=== PATIENT | male | born 1955 | race Caucasian/White ===

== ENCOUNTER 2017-05-10 13:10 | Inpatient (IN) | payer SELFPAY ==
[~2017-05-10] VITALS: Ht 172.7 cm; Wt 81.2 kg
[2017-05-10 14:47] LABS: HEMATOCRIT 43.1 % (38.0-50.0); MCH 30.8 PG (29.0-34.0); MCHC 33.4 G/DL (30.0-36.0); MCV 92.3 FL (86-99); MEAN PLAT.VOLUME 9.6 uM^3 (9.0-12.4); PLATELET COUNT 219 K/uL (156-360); RBC DIS.WIDTH-CV 14.2 % (11.8-14.6); RED BLOOD COUNT 4.67 M/uL (4.00-5.50); WHITE BLOOD COUNT 8.7 K/uL (4.1-10.2)
[2017-05-10 14:58] LABS: CHLORIDE 107 mEq/L (99-109); SODIUM 141 mEq/L (136-147)
[2017-05-10 15:00] LABS: GLUCOSE 127 mg/dL (70-99)
[2017-05-10 15:01] LABS: ANION GAP 10 MEQ/L (2-14)
[2017-05-10 15:03] LABS: SERUM ETHYL ALCOHOL 159 mg/dL
[2017-05-10 15:04] LABS: GFR ESTIMATE (CALCULATED) > 59 mL/min/
[2017-05-10 15:05] LABS: UREA NITROGEN (BUN) 16 mg/dL (9-23)
[2017-05-10 15:06] LABS: TROP-I INTERPRETATION NEGATIVE; TROPONIN-I < 0.01 ng/mL (0.0-0.30)
[2017-05-10 16:20] LABS: AMPHETAMINE NEGATIVE (500 ng/mL); BARBITURATES NEGATIVE (200 ng/mL); BENZODIAZEPINES PRESUMPTIVE POSITIVE (150 ng/mL); COCAINE NEGATIVE (150 ng/mL); INTERNAL CONTROLS VALID? YES; METHADONE NEGATIVE (200 ng/mL); METHAMPHETAMINE NEGATIVE (500 ng/mL); OPIATES (MORPHINE) NEGATIVE (100 ng/mL); OXYCODONE NEGATIVE (100 ng/mL); PHENCYCLIDINE NEGATIVE (25 ng/mL); PROPOXYPHENE NEGATIVE (300 ng/mL); THC CANNABINOIDS NEGATIVE (50 ng/mL); TRICYCLIC ANTIDEPRESSANTS NEGATIVE (300 ng/mL)
[2017-05-10 16:21] LABS: ADD MEDTOX COMMENT Y
[2017-05-10 16:47] LABS: BENZODIAZEPINES QUANT VALUE 0 NG/ML; BENZODIAZEPINES, URINE SCREEN Negative (200 ng/mL)
[2017-05-10 18:06] LABS: TROP-I INTERPRETATION NEGATIVE; TROPONIN-I < 0.01 ng/mL (0.0-0.30)
[2017-05-10] MEDS ORDERED: ALBUTEROL (21:30)
[2017-05-10] MEDS ORDERED: TYLENOL EXTRA500 MG PO (21:31)
[2017-05-11 02:04] VITALS: BP 118/70
[2017-05-11 07:46] VITALS: BP 116/68
[2017-05-11 15:15] VITALS: BP 126/64
[2017-05-12 08:12] VITALS: BP 116/63
== END 2017-05-12 14:52 | disposition left against medical advice (07) | DRG 894 ==
LOC: EME 13:10 → EDOF 19:49 → 1WEST 19:49 → ENRESERV 05-11 01:40 → 1WEST 05-11 01:41
PROVIDERS: Emergency Medicine
PROC: HZ2ZZZZ Detoxification Services for Substance Abuse Treatment (ICD-10-PCS; principal; 2017-05-10)
DX: F10.24 Alcohol dependence with alcohol-induced mood disorder (principal); R45.851 Suicidal ideations; Y90.6 Blood alcohol level of 120-199 mg/100 ml; F32.9 Major depressive disorder, single episode, unspecified; Z91.14 Patient's other noncompliance with medication regimen; Z91.5 Personal history of self-harm; R07.89 Other chest pain; Z59.0 Homelessness; G47.00 Insomnia, unspecified; J44.9 Chronic obstructive pulmonary disease, unspecified; F17.200 Nicotine dependence, unspecified, uncomplicated; Z81.8 Family history of other mental and behavioral disorders
CPT/HCPCS: 71010; 80048; 84484; 84999; 85027; 90839; 93005; 94640; 97166 GO; 99202; 99281; 99284; G0480; J7644; Q0177

== ENCOUNTER 2017-05-13 02:29 | Emergency (ER) | payer SELFPAY ==
[~2017-05-13] VITALS: Ht 180.3 cm; Wt 80.7 kg
[~2017-05-13 02:29] MED LIST: ALBUTEROL; TYLENOL EXTRA500 MG PO
[2017-05-13 03:11] LABS: BASOPHIL COUNT 0.1 K/uL (0-0.1); EOSINOPHIL (%) 1.7 % (0-5); EOSINOPHIL COUNT 0.2 K/uL (0-0.3); HEMATOCRIT 42.7 % (38.0-50.0); IMMATURE GRANULOCYTE (%) 0.5 % (0.0-0.7); IMMATURE GRANULOCYTE COUNT 0.1 K/uL; LYMPHOCYTE COUNT 2.1 K/uL (1.0-2.8); MCH 31.1 PG (29.0-34.0); MCV 94.1 FL (86-99); MEAN PLAT.VOLUME 9.5 uM^3 (9.0-12.4); MONOCYTE (%) 4.9 % (3-12); MONOCYTE COUNT 0.7 K/uL (0-0.8); NEUTROPHIL (%) 76.1 % (45-76); PLATELET COUNT 225 K/uL (156-360); RBC DIS.WIDTH-CV 14.2 % (11.8-14.6); RBC DIS.WIDTH-SD 49.2 % (39-53); RED BLOOD COUNT 4.54 M/uL (4.00-5.50); WHITE BLOOD COUNT 13.1 K/uL (4.1-10.2)
[2017-05-13 03:20] LABS: CHLORIDE 112 mEq/L (99-109); POTASSIUM 4.5 mEq/L (3.7-5.4); SODIUM 147 mEq/L (136-147)
[2017-05-13 03:22] LABS: GLUCOSE 111 mg/dL (70-99)
[2017-05-13 03:23] LABS: ANION GAP 9 MEQ/L (2-14)
[2017-05-13 03:25] LABS: SERUM ETHYL ALCOHOL 262 mg/dL
[2017-05-13 03:26] LABS: GFR ESTIMATE (CALCULATED) > 59 mL/min/
[2017-05-13 03:28] LABS: UREA NITROGEN (BUN) 14 mg/dL (9-23)
[2017-05-13 03:29] LABS: SALICYLATE < 5.0 MG/DL (15-30)
[2017-05-13 10:27] LABS: AMPHETAMINE NEGATIVE (500 ng/mL); BARBITURATES NEGATIVE (200 ng/mL); BENZODIAZEPINES PRESUMPTIVE POSITIVE (150 ng/mL); COCAINE NEGATIVE (150 ng/mL); METHADONE NEGATIVE (200 ng/mL); METHAMPHETAMINE NEGATIVE (500 ng/mL); OPIATES (MORPHINE) NEGATIVE (100 ng/mL); OXYCODONE NEGATIVE (100 ng/mL); PHENCYCLIDINE NEGATIVE (25 ng/mL); PROPOXYPHENE NEGATIVE (300 ng/mL); THC CANNABINOIDS NEGATIVE (50 ng/mL); TRICYCLIC ANTIDEPRESSANTS NEGATIVE (300 ng/mL)
[2017-05-13 10:28] LABS: ADD MEDTOX COMMENT Y; INTERNAL CONTROLS VALID? YES
[2017-05-13 11:10] LABS: BENZODIAZEPINES, URINE SCREEN POSITIVE (200 ng/mL)
[2017-05-13 12:23] VITALS: BP 115/73
== END 2017-05-13 12:23 | disposition home or self-care (01) ==
LOC: EME 02:29
PROVIDERS: Emergency Medicine
DX: F10.24 Alcohol dependence with alcohol-induced mood disorder (principal); F31.30 Bipolar disorder, current episode depressed, mild or moderate severity, unspecified; R45.851 Suicidal ideations; Z91.14 Patient's other noncompliance with medication regimen; F69 Unspecified disorder of adult personality and behavior; F17.200 Nicotine dependence, unspecified, uncomplicated
CPT/HCPCS: 80048; 84999; 85025; 90839; 99281; 99283; G0480

== ENCOUNTER 2017-05-13 18:36 | Emergency (ER) | payer SELFPAY ==
[~2017-05-13] VITALS: Ht 177.8 cm; Wt 83.5 kg
[2017-05-13 19:51] LABS: POINT-OF-CARE METER ID UU13113747
[2017-05-14 01:48] VITALS: BP 128/81
== END 2017-05-14 01:48 | disposition home or self-care (01) ==
LOC: EME 18:36
PROVIDERS: Emergency Medicine
DX: F10.129 Alcohol abuse with intoxication, unspecified (principal); F17.200 Nicotine dependence, unspecified, uncomplicated
CPT/HCPCS: 82948; 99281; 99285

== ENCOUNTER 2017-05-15 20:24 | Emergency (ER) | payer SELFPAY ==
[~2017-05-15] VITALS: Ht 172.7 cm; Wt 85.8 kg
[2017-05-16 05:19] VITALS: BP 116/68
== END 2017-05-16 05:24 | disposition home or self-care (01) ==
LOC: EME 20:24
DX: F10.129 Alcohol abuse with intoxication, unspecified (principal); Z91.14 Patient's other noncompliance with medication regimen; F17.200 Nicotine dependence, unspecified, uncomplicated
CPT/HCPCS: 99281; 99285

== ENCOUNTER 2017-05-16 23:05 | Emergency (ER) | payer SELFPAY ==
[~2017-05-16] VITALS: Ht 180.3 cm; Wt 81.8 kg
[2017-05-16 23:52] LABS: HEMATOCRIT 40.2 % (38.0-50.0); MCH 31.1 PG (29.0-34.0); MCHC 33.8 G/DL (30.0-36.0); MCV 91.8 FL (86-99); MEAN PLAT.VOLUME 9.2 uM^3 (9.0-12.4); PLATELET COUNT 251 K/uL (156-360); RBC DIS.WIDTH-CV 14.5 % (11.8-14.6); RED BLOOD COUNT 4.38 M/uL (4.00-5.50); WHITE BLOOD COUNT 8.2 K/uL (4.1-10.2)
[2017-05-17 00:01] LABS: CHLORIDE 112 mEq/L (99-109); SODIUM 149 mEq/L (136-147)
[2017-05-17 00:02] LABS: POTASSIUM 3.5 mEq/L (3.7-5.4)
[2017-05-17 00:03] LABS: GLUCOSE 107 mg/dL (70-99)
[2017-05-17 00:04] LABS: ANION GAP 13 MEQ/L (2-14)
[2017-05-17 00:06] LABS: SERUM ETHYL ALCOHOL 403 mg/dL
[2017-05-17 00:07] LABS: GFR ESTIMATE (CALCULATED) > 59 mL/min/
[2017-05-17 00:08] LABS: UREA NITROGEN (BUN) 18 mg/dL (9-23)
[2017-05-17 00:10] LABS: COCAINE NEGATIVE (150 ng/mL); METHAMPHETAMINE NEGATIVE (500 ng/mL); PHENCYCLIDINE NEGATIVE (25 ng/mL); THC CANNABINOIDS NEGATIVE (50 ng/mL)
[2017-05-17 00:11] LABS: ADD MEDTOX COMMENT Y; AMPHETAMINE NEGATIVE (500 ng/mL); BARBITURATES NEGATIVE (200 ng/mL); BENZODIAZEPINES PRESUMPTIVE POSITIVE (150 ng/mL); INTERNAL CONTROLS VALID? YES; METHADONE NEGATIVE (200 ng/mL); OPIATES (MORPHINE) NEGATIVE (100 ng/mL); OXYCODONE NEGATIVE (100 ng/mL); PROPOXYPHENE NEGATIVE (300 ng/mL); TRICYCLIC ANTIDEPRESSANTS NEGATIVE (300 ng/mL)
[2017-05-17 02:48] LABS: BENZODIAZEPINES, URINE SCREEN POSITIVE (200 ng/mL)
[2017-05-17 04:37] VITALS: BP 112/77
== END 2017-05-17 04:41 | disposition home or self-care (01) ==
LOC: EME → EDBD 23:05 → EME 05-17 04:41
PROVIDERS: Emergency Medicine
DX: F10.129 Alcohol abuse with intoxication, unspecified (principal); Y90.8 Blood alcohol level of 240 mg/100 ml or more; F17.200 Nicotine dependence, unspecified, uncomplicated
CPT/HCPCS: 80048; 84999; 85027; 99281; 99284; G0480

== ENCOUNTER 2017-05-19 18:55 | Emergency (ER) | payer SELFPAY ==
[~2017-05-19] VITALS: Ht 180.3 cm; Wt 98.1 kg
[2017-05-19 19:48] LABS: HEMATOCRIT 41.1 % (38.0-50.0); MCH 31.5 PG (29.0-34.0); MCHC 34.8 G/DL (30.0-36.0); MCV 90.5 FL (86-99); MEAN PLAT.VOLUME 9.5 uM^3 (9.0-12.4); PLATELET COUNT 235 K/uL (156-360); RBC DIS.WIDTH-CV 14.4 % (11.8-14.6); RBC DIS.WIDTH-SD 47.9 % (39-53); RED BLOOD COUNT 4.54 M/uL (4.00-5.50); WHITE BLOOD COUNT 8.5 K/uL (4.1-10.2)
[2017-05-19 19:54] LABS: AMPHETAMINE NEGATIVE (500 ng/mL); BARBITURATES NEGATIVE (200 ng/mL); BENZODIAZEPINES PRESUMPTIVE POSITIVE (150 ng/mL); COCAINE NEGATIVE (150 ng/mL); INTERNAL CONTROLS VALID? YES; METHADONE NEGATIVE (200 ng/mL); METHAMPHETAMINE NEGATIVE (500 ng/mL); OPIATES (MORPHINE) NEGATIVE (100 ng/mL); OXYCODONE NEGATIVE (100 ng/mL); PHENCYCLIDINE NEGATIVE (25 ng/mL); PROPOXYPHENE NEGATIVE (300 ng/mL); THC CANNABINOIDS NEGATIVE (50 ng/mL); TRICYCLIC ANTIDEPRESSANTS NEGATIVE (300 ng/mL)
[2017-05-19 19:59] LABS: CHLORIDE 111 mEq/L (99-109); POTASSIUM 3.8 mEq/L (3.7-5.4); SODIUM 146 mEq/L (136-147)
[2017-05-19 20:01] LABS: ADD MEDTOX COMMENT Y
[2017-05-19 20:01] LABS: GLUCOSE 88 mg/dL (70-99)
[2017-05-19 20:02] LABS: ANION GAP 13 MEQ/L (2-14)
[2017-05-19 20:04] LABS: GFR ESTIMATE (CALCULATED) > 59 mL/min/; SERUM ETHYL ALCOHOL 415 mg/dL
[2017-05-19 20:05] LABS: UREA NITROGEN (BUN) 15 mg/dL (9-23)
[2017-05-19 20:18] LABS: BENZODIAZEPINES QUANT VALUE 0 NG/ML; BENZODIAZEPINES, URINE SCREEN Negative (200 ng/mL)
[2017-05-20 10:11] VITALS: BP 136/82
[2017-05-21] MEDS ORDERED: PROAIR HFA8.5 GM IH (12:59)
== END 2017-05-20 10:14 | disposition home or self-care (01) ==
LOC: EME 18:55
PROVIDERS: Nurse Practitioner Family
DX: F10.24 Alcohol dependence with alcohol-induced mood disorder (principal); F32.9 Major depressive disorder, single episode, unspecified; R45.851 Suicidal ideations; F17.200 Nicotine dependence, unspecified, uncomplicated
CPT/HCPCS: 80048; 84999; 85027; 90837; 99281; 99285; G0480; J1630; J2060

== ENCOUNTER 2017-05-20 13:38 | Inpatient (IN) | payer SELFPAY ==
[~2017-05-20] VITALS: Ht 180.3 cm; Wt 77.2 kg
[2017-05-20 14:07] LABS: BASOPHIL COUNT 0.1 K/uL (0-0.1); EOSINOPHIL (%) 2.9 % (0-5); EOSINOPHIL COUNT 0.2 K/uL (0-0.3); HEMATOCRIT 41.9 % (38.0-50.0); IMMATURE GRANULOCYTE (%) 0.3 % (0.0-0.7); INSTRUMENT ABS NEUTROPHIL CT 3.5 K/uL; LYMPHOCYTE COUNT 3.1 K/uL (1.0-2.8); MCH 31.5 PG (29.0-34.0); MCHC 34.4 G/DL (30.0-36.0); MCV 91.7 FL (86-99); MEAN PLAT.VOLUME 9.1 uM^3 (9.0-12.4); MONOCYTE (%) 8.9 % (3-12); MONOCYTE COUNT 0.7 K/uL (0-0.8); NEUTROPHIL (%) 46.5 % (45-76); NEUTROPHIL COUNT 3.5 K/uL (1.8-6.4); PLATELET COUNT 241 K/uL (156-360); RBC DIS.WIDTH-CV 14.7 % (11.8-14.6); RBC DIS.WIDTH-SD 49.9 % (39-53); RED BLOOD COUNT 4.57 M/uL (4.00-5.50); WHITE BLOOD COUNT 7.5 K/uL (4.1-10.2)
[2017-05-20 14:17] LABS: CHLORIDE 108 mEq/L (99-109); POTASSIUM 3.9 mEq/L (3.7-5.4); SODIUM 141 mEq/L (136-147)
[2017-05-20 14:19] LABS: GLUCOSE 78 mg/dL (70-99)
[2017-05-20 14:20] LABS: ANION GAP 12 MEQ/L (2-14)
[2017-05-20 14:22] LABS: SERUM ETHYL ALCOHOL 363 mg/dL
[2017-05-20 14:23] LABS: GFR ESTIMATE (CALCULATED) > 59 mL/min/
[2017-05-20 14:24] LABS: UREA NITROGEN (BUN) 16 mg/dL (9-23)
[2017-05-20 14:25] LABS: AMPHETAMINE NEGATIVE (500 ng/mL); BARBITURATES NEGATIVE (200 ng/mL); BENZODIAZEPINES PRESUMPTIVE POSITIVE (150 ng/mL); COCAINE NEGATIVE (150 ng/mL); INTERNAL CONTROLS VALID? YES; METHADONE NEGATIVE (200 ng/mL); METHAMPHETAMINE NEGATIVE (500 ng/mL); OPIATES (MORPHINE) NEGATIVE (100 ng/mL); OXYCODONE NEGATIVE (100 ng/mL); PHENCYCLIDINE NEGATIVE (25 ng/mL); PROPOXYPHENE NEGATIVE (300 ng/mL); THC CANNABINOIDS NEGATIVE (50 ng/mL); TRICYCLIC ANTIDEPRESSANTS NEGATIVE (300 ng/mL)
[2017-05-20 14:26] LABS: ADD MEDTOX COMMENT Y
[2017-05-20 15:18] LABS: BENZODIAZEPINES, URINE SCREEN POSITIVE (200 ng/mL)
[2017-05-21] MEDS ORDERED: PROAIR HFA8.5 GM IH (12:59)
[2017-05-21 13:28] VITALS: BP 131/83
[2017-05-21 13:33] VITALS: BP 131/83
[2017-05-21 15:37] VITALS: BP 122/68
[2017-05-22 07:52] VITALS: BP 118/80
[2017-05-23] MEDS ORDERED: CLONIDINE HCL0.1 MG PO (06:53)
[2017-05-23] MEDS ORDERED: TRAZODONE HCL50 MG PO (06:53)
== END 2017-05-22 13:23 | disposition home or self-care (01) | DRG 897 ==
LOC: EME 13:38 → 1WEST 05-21 12:11 → EDOF 05-21 12:11 → ENRESERV 05-21 13:24 → 1WEST 05-21 13:25
PROVIDERS: Emergency Medicine
DX: F10.24 Alcohol dependence with alcohol-induced mood disorder (principal); Y90.8 Blood alcohol level of 240 mg/100 ml or more; F10.239 Alcohol dependence with withdrawal, unspecified; R45.851 Suicidal ideations; F17.200 Nicotine dependence, unspecified, uncomplicated; J44.9 Chronic obstructive pulmonary disease, unspecified; Z59.0 Homelessness; Z91.14 Patient's other noncompliance with medication regimen; Z91.5 Personal history of self-harm
CPT/HCPCS: 80048; 84999; 85025; 85027; 90837; 90839; 97150 GO; 97166 GO; 99281; 99285; G0480; J1630; J2060

== ENCOUNTER 2017-05-23 00:41 | Emergency (ER) | payer SELFPAY ==
[~2017-05-23] VITALS: Ht 180.3 cm; Wt 83.3 kg
[~2017-05-23 00:41] MED LIST changes: +PROAIR HFA8.5 GM IH
[2017-05-23 04:41] LABS: EOSINOPHIL (%) 2.8 % (0-5); EOSINOPHIL COUNT 0.2 K/uL (0-0.3); IMMATURE GRANULOCYTE (%) 0.1 % (0.0-0.7); INSTRUMENT ABS NEUTROPHIL CT 2.9 K/uL; LYMPHOCYTE COUNT 3.6 K/uL (1.0-2.8); MCH 31.1 PG (29.0-34.0); MCHC 33.6 G/DL (30.0-36.0); MCV 92.6 FL (86-99); MEAN PLAT.VOLUME 9.4 uM^3 (9.0-12.4); MONOCYTE (%) 8.1 % (3-12); MONOCYTE COUNT 0.6 K/uL (0-0.8); NEUTROPHIL (%) 39.6 % (45-76); NEUTROPHIL COUNT 2.9 K/uL (1.8-6.4); PLATELET COUNT 220 K/uL (156-360); RBC DIS.WIDTH-CV 14.6 % (11.8-14.6); RBC DIS.WIDTH-SD 49.6 % (39-53); RED BLOOD COUNT 4.21 M/uL (4.00-5.50); WHITE BLOOD COUNT 7.4 K/uL (4.1-10.2)
[2017-05-23 04:47] LABS: CHLORIDE 107 mEq/L (99-109); POTASSIUM 3.9 mEq/L (3.7-5.4); SODIUM 142 mEq/L (136-147)
[2017-05-23 04:50] LABS: GLUCOSE 83 mg/dL (70-99)
[2017-05-23 04:51] LABS: ANION GAP 9 MEQ/L (2-14); TOTAL BILIRUBIN 0.6 mg/dL (0.0-1.0)
[2017-05-23 04:53] LABS: ALKALINE PHOSPHATASE 47 IU/L (3-129); GFR ESTIMATE (CALCULATED) > 59 mL/min/
[2017-05-23 04:54] LABS: UREA NITROGEN (BUN) 14 mg/dL (9-23)
[2017-05-23 04:55] LABS: DIRECT BILIRUBIN 0.3 mg/dL (0.0-0.3)
[2017-05-23 04:59] LABS: TROP-I INTERPRETATION NEGATIVE; TROPONIN-I < 0.01 ng/mL (0.0-0.30)
[2017-05-23 06:45] LABS: TROP-I INTERPRETATION NEGATIVE; TROPONIN-I < 0.01 ng/mL (0.0-0.30)
[2017-05-23] MEDS ORDERED: CLONIDINE HCL0.1 MG PO (06:53)
[2017-05-23] MEDS ORDERED: TRAZODONE HCL50 MG PO (06:53)
[2017-05-23 07:02] VITALS: BP 111/65
== END 2017-05-23 07:04 | disposition home or self-care (01) ==
LOC: EME 00:41
PROVIDERS: Emergency Medicine
DX: F11.23 Opioid dependence with withdrawal (principal); R07.9 Chest pain, unspecified; F17.200 Nicotine dependence, unspecified, uncomplicated
CPT/HCPCS: 71010; 80048; 80076; 84484; 85025; 93005; 99281; 99283

== ENCOUNTER 2017-05-23 21:35 | Emergency (ER) | payer SELFPAY ==
[~2017-05-23] VITALS: Ht 180.3 cm; Wt 86.7 kg
[~2017-05-23 21:35] MED LIST changes: +CLONIDINE HCL0.1 MG PO; +TRAZODONE HCL50 MG PO
[2017-05-23 23:45] LABS: BASOPHIL COUNT 0.1 K/uL (0-0.1); EOSINOPHIL (%) 2.5 % (0-5); EOSINOPHIL COUNT 0.3 K/uL (0-0.3); HEMATOCRIT 38.4 % (38.0-50.0); IMMATURE GRANULOCYTE (%) 0.3 % (0.0-0.7); LYMPHOCYTE COUNT 3.2 K/uL (1.0-2.8); MCH 31.6 PG (29.0-34.0); MCHC 33.6 G/DL (30.0-36.0); MCV 94.1 FL (86-99); MEAN PLAT.VOLUME 10.3 uM^3 (9.0-12.4); MONOCYTE (%) 6.7 % (3-12); MONOCYTE COUNT 0.8 K/uL (0-0.8); NEUTROPHIL (%) 61.5 % (45-76); PLATELET COUNT 213 K/uL (156-360); RBC DIS.WIDTH-CV 14.7 % (11.8-14.6); RBC DIS.WIDTH-SD 51.2 % (39-53); RED BLOOD COUNT 4.08 M/uL (4.00-5.50); WHITE BLOOD COUNT 11.3 K/uL (4.1-10.2)
[2017-05-23 23:57] LABS: CHLORIDE 105 mEq/L (99-109); POTASSIUM 4.2 mEq/L (3.7-5.4); SODIUM 137 mEq/L (136-147)
[2017-05-24] LABS: GLUCOSE 88 mg/dL (70-99)
[2017-05-24 00:01] LABS: ANION GAP 10 MEQ/L (2-14)
[2017-05-24 00:03] LABS: SERUM ETHYL ALCOHOL 28 mg/dL
[2017-05-24 00:04] LABS: ALKALINE PHOSPHATASE 57 IU/L (3-129); GFR ESTIMATE (CALCULATED) > 59 mL/min/
[2017-05-24 00:05] LABS: UREA NITROGEN (BUN) 21 mg/dL (9-23)
[2017-05-24 00:07] LABS: SALICYLATE < 5.0 MG/DL (15-30)
[2017-05-24 00:21] LABS: TOTAL BILIRUBIN 0.4 mg/dL (0.0-1.0)
[2017-05-24 00:26] LABS: ADD MEDTOX COMMENT Y; AMPHETAMINE NEGATIVE (500 ng/mL); BARBITURATES NEGATIVE (200 ng/mL); BENZODIAZEPINES PRESUMPTIVE POSITIVE (150 ng/mL); COCAINE NEGATIVE (150 ng/mL); INTERNAL CONTROLS VALID? YES; METHADONE NEGATIVE (200 ng/mL); METHAMPHETAMINE NEGATIVE (500 ng/mL); OPIATES (MORPHINE) NEGATIVE (100 ng/mL); OXYCODONE NEGATIVE (100 ng/mL); PHENCYCLIDINE NEGATIVE (25 ng/mL); PROPOXYPHENE NEGATIVE (300 ng/mL); THC CANNABINOIDS NEGATIVE (50 ng/mL); TRICYCLIC ANTIDEPRESSANTS NEGATIVE (300 ng/mL)
[2017-05-24 01:35] LABS: BENZODIAZEPINES, URINE SCREEN POSITIVE (200 ng/mL)
[2017-05-24 02:23] VITALS: BP 119/70
== END 2017-05-24 02:25 | disposition home or self-care (01) ==
LOC: EME 21:35
PROVIDERS: Emergency Medicine
DX: F10.94 Alcohol use, unspecified with alcohol-induced mood disorder (principal); F32.9 Major depressive disorder, single episode, unspecified; J44.9 Chronic obstructive pulmonary disease, unspecified; Z91.14 Patient's other noncompliance with medication regimen; F17.200 Nicotine dependence, unspecified, uncomplicated
CPT/HCPCS: 80053; 84999; 85025 91; 90839; 99281; 99283; G0480